=== PATIENT | male | born 2000 | race Caucasian/White ===

== ENCOUNTER 2023-09-16 12:37 | Inpatient (IN) | payer OTHER ==
[~2023-09-16] VITALS: Ht 177.8 cm; Wt 84.2 kg
[2023-09-16 13:15] VITALS: PULSE 85; RESP 18; O2SAT 98
[2023-09-16 13:32] LABS: Basophils # (auto) 0 10 ^3/uL (0-0.2); Basophils % (auto) 0.3 % (0.0-2.0); Eosinophils # (auto) 0 10 ^3/uL (0-0.8); Eosinophils % (auto) 0.3 % (0.0-7.0); Hematocrit 40.8 % (41.0-53.0); Hemoglobin 14.6 g/dL (13.5-17.5); Lymphocytes # (auto) 1.8 10 ^3/uL (0.4-5.4); Lymphocytes % (auto) 20.1 % (10.0-50.0); Mean Corpuscular Hgb Conc. 35.7 g/dL (32.0-36.0); Mean Corpuscular Volume 89.6 fL (80.0-100.0); Monocytes # (auto) 0.6 10 ^3/uL (0-1.3); Monocytes % (auto) 6.4 % (0.0-12.0); Neutrophils # (auto) 6.5 10 ^3/uL (1.6-8.6); Neutrophils % (auto) 72.9 % (37.0-80.0); Red Blood Cells 4.55 10^6/uL (4.5-5.90); Red Cell Distribution Width 12.7 % (11.8-14.3); White Blood Cell 8.9 10^3/uL (4.4-10.8)
[2023-09-16 13:34] LABS: Urine Bacteria None Seen /hpf (None Seen)
[2023-09-16 13:39] LABS: Urine Blood Negative /uL (Negative); Urine Clarity Clear (Clear); Urine Color Light-Yellow (Yellow); Urine Protein, UAD Negative (Negative); Urine Specific Gravity 1.015 (1.001-1.035); Urine Urobilinogen Normal (Negative); Urine WBC <1 /hpf (0 - 3)
[2023-09-16 13:47] LABS: INR 1.15 (0.9-1.15); Partial Thromboplastin Time 25.6 SEC (24.5-34.5); Prothrombin Time 12.1 sec (9.3-11.8)
[2023-09-16] MEDS: IOHEXOL 300 MG/ML 100ML BOTTLE IJ ONE (13:52)
[2023-09-16 13:53] LABS: Alanine Aminotransferase 11 U/L (7-40); Albumin 4.1 g/dL (3.2-4.8); Alkaline Phosphatase 49 U/L (46-116); Anion Gap 8 (5-15); Aspartate Aminotransferase < 8 U/L (13-40); Blood Urea Nitrogen 23 mg/dL (9-23); Carbon Dioxide 26 mmol/L (20-30); Chloride 106 mmol/L (98-107); Glucose 99 mg/dL (74-106); Lipase 19 U/L (12-53); Potassium 4.7 mmol/L (3.5-5.1); Sodium 140 mmol/L (136-145)
[2023-09-16 13:54] LABS: Total Protein 5.9 g/dL (5.7-8.2)
[2023-09-16] MEDS ORDERED: ONDANSETRON HCL 4 MG/2 ML VIAL IV PRN (14:45)
[2023-09-16] MEDS ORDERED: HYDROmorphone HCL 2 MG/ML VL/or syr IV PRN (14:45)
[2023-09-16] MEDS ORDERED: DOCUSATE SOD 100 MG CAP PO PRN (14:45)
[2023-09-16] MEDS: LACTATED RINGER'S 1,000 ML IV ONE (14:51)
[2023-09-16] MEDS: PANTOPRAZOLE 40mg/50ML NS AE 50 ML IV ONE (14:51)
[2023-09-16 18:44] VITALS: PULSE 70; RESP 18; O2SAT 97
[2023-09-16 18:50] VITALS: BP 129/68; PULSE 70; RESP 18; TEMP 98.3; O2SAT 97
[2023-09-16 21:00] VITALS: BP 110/71; PULSE 75; RESP 18; TEMP 98.3; O2SAT 100
[2023-09-16] MEDS: SODIUM CHLOR 0.9% PF (SALINE LOCK) 10ML VIAL/SYR IV SCH (22:45)
[2023-09-17 00:55] VITALS: BP 120/65; PULSE 67; RESP 16; TEMP 98.2; O2SAT 100
[2023-09-17 05:00] VITALS: BP 118/65; PULSE 62; RESP 18; TEMP 98; O2SAT 100
[2023-09-17] MEDS: SUCCINYLCHOLINE CHLORIDE 20 MG/ML 10ML VIAL IV ONE (07:40)
[2023-09-17] MEDS: FAMOTIDINE (10MG/ML) 2ML VL IV ONE (07:40)
[2023-09-17] MEDS ORDERED: fentaNYL CITRATE 100 MCG/2 ML VL ONE (07:41)
[2023-09-17] MEDS ORDERED: ONDANSETRON HCL 4 MG/2 ML VIAL ONE (07:42)
[2023-09-17] MEDS ORDERED: LIDOCAINE 2% (LOCAL ANESTH.) PF 5ml SDV ONE (07:42)
[2023-09-17] MEDS ORDERED: PROPOFOL 10 MG/ML 20 ML IV ONE (07:42)
[2023-09-17] MEDS ORDERED: MIDAZOLAM HCL 2MG/2ML 2ml VIAL (1mg/ml) ONE (07:42)
[2023-09-17] MEDS ORDERED: GLYCOPYRROLATE 0.2 MG/ML 1ML VIAL ONE (07:42)
[2023-09-17 08:14] VITALS: O2SAT 97
[2023-09-17] MEDS ORDERED: HYDROmorphone HCL 2 MG/ML VL/or syr IV PRN (08:30)
[2023-09-17] MEDS: ONDANSETRON HCL 4 MG/2 ML VIAL IV ONE (08:30)
[2023-09-17 08:57] VITALS: BP 107/59; PULSE 70; RESP 16; TEMP 98.4; O2SAT 96
[2023-09-17] MEDS ORDERED: PANTOPRAZOLE 40 MG/10 ML VIAL INJ IV SCH (10:00)
[2023-09-17] MEDS: PANTOPRAZOLE 40 MG TAB PO ONE (10:07)
[2023-09-17 10:08] LABS: Basophils # (auto) 0 10 ^3/uL (0-0.2); Basophils % (auto) 0.5 % (0.0-2.0); Eosinophils # (auto) 0.1 10 ^3/uL (0-0.8); Eosinophils % (auto) 2.9 % (0.0-7.0); Hematocrit 35.8 % (41.0-53.0); Hemoglobin 12.6 g/dL (13.5-17.5); Lymphocytes # (auto) 2.3 10 ^3/uL (0.4-5.4); Mean Corpuscular Hemoglobin 32.3 pg (28.0-32.0); Mean Corpuscular Hgb Conc. 35.2 g/dL (32.0-36.0); Mean Corpuscular Volume 91.9 fL (80.0-100.0); Monocytes # (auto) 0.4 10 ^3/uL (0-1.3); Monocytes % (auto) 7.6 % (0.0-12.0); Neutrophils # (auto) 2.2 10 ^3/uL (1.6-8.6); Nucleated Red Blood Cells % 0.1 %; Red Blood Cells 3.89 10^6/uL (4.5-5.90); Red Cell Distribution Width 12.8 % (11.8-14.3); White Blood Cell 5.1 10^3/uL (4.4-10.8)
[2023-09-17 10:34] LABS: Albumin 3.4 g/dL (3.2-4.8); Alkaline Phosphatase 40 U/L (46-116); Anion Gap 6 (5-15); Aspartate Aminotransferase < 8 U/L (13-40); BUN/Creatinine Ratio 15.1 (10.0-20.0); Bilirubin, Total 1.4 mg/dL (0.2-1.0); Blood Urea Nitrogen 13 mg/dL (9-23); Calcium 8.1 mg/dL (8.7-10.4); Carbon Dioxide 26 mmol/L (20-30); Chloride 109 mmol/L (98-107); Glucose 80 mg/dL (74-106); Potassium 3.6 mmol/L (3.5-5.1); Sodium 141 mmol/L (136-145)
[2023-09-17 10:37] LABS: Alanine Aminotransferase < 9 U/L (7-40)
[2023-09-17 11:48] VITALS: BP 100/54; PULSE 70; RESP 18; TEMP 98.4; O2SAT 97
[2023-09-17 16:59] VITALS: BP 105/54; PULSE 59; RESP 16; TEMP 97.7; O2SAT 94
[2023-09-17] MEDS: PANTOPRAZOLE 40 MG TAB PO SCH (17:52)
[2023-09-17] MEDS ORDERED: SUCRALFATE 1 GM/10 ML ORAL SUSP PO SCH (22:00)
[2023-09-20 09:09] LABS: Hepatitis B Core Total AB Negative (Negative)
[2023-09-20 10:20] LABS: Hepatitis A Total Antibody Positive (Negative); Hepatitis B Surface Antibody Positive (Negative); Hepatitis B Surface Antigen Negative (Negative)
[2023-09-20 10:21] LABS: Hepatitis C Antibody Negative (Negative)
== END 2023-09-17 18:11 | disposition home or self-care (01) | DRG 378 ==
LOC: ER 12:37 → EDBD 12:37 → OVERFLOW 14:38 → WEST WING 18:31
PROVIDERS: ADMIT Internal Medicine; ATTEND Internal Medicine
PROC: 0DB68ZX Excision of Stomach, Via Natural or Artificial Opening Endoscopic, Diagnostic (ICD-10-PCS; 2023-09-17)
PROC: 0DB98ZX Excision of Duodenum, Via Natural or Artificial Opening Endoscopic, Diagnostic (ICD-10-PCS; principal; 2023-09-17 07:57)
DX: K29.91 Gastroduodenitis, unspecified, with bleeding (principal); R71.0 Precipitous drop in hematocrit; I95.9 Hypotension, unspecified; K25.4 Chronic or unspecified gastric ulcer with hemorrhage; K26.4 Chronic or unspecified duodenal ulcer with hemorrhage
CPT/HCPCS: 36415; 43239; 74177; 80053; 81001; 82728; 83605; 83690; 84484; 85025; 85610; 85730; 86704; 86706; 86708; 86803; 86850; 86900; 86901; 87340; G0378; J0330; J2001; J2250; J2405; J2704; J3490